=== PATIENT | male | born 1985 | race Caucasian/White ===

== ENCOUNTER 2018-02-06 20:57 | Emergency (ER) | payer OTHER ==
[~2018-02-06] VITALS: Ht 180.3 cm; Wt 162.7 kg
[~2018-02-06 20:57] MED LIST: BENADRYL25 MG PO; EPIPEN ADU0.3 MG/0.3 IM; PEPCID20 MG PO
[2018-02-06 22:05] LABS: BASOPHIL (%) 0.5 % (0-1); BASOPHIL COUNT 0.1 K/uL (0-0.1); EOSINOPHIL (%) 2.1 % (0-5); EOSINOPHIL COUNT 0.2 K/uL (0-0.3); HEMATOCRIT 40.9 % (38.0-50.0); HEMOGLOBIN 14.1 G/DL (12.5-16.6); IMMATURE GRANULOCYTE (%) 0.4 % (0.0-0.7); LYMPHOCYTE (%) 22.1 % (15-42); LYMPHOCYTE COUNT 2.5 K/uL (1.0-2.8); MCH 29.2 PG (29.0-34.0); MCHC 34.5 G/DL (30.0-36.0); MCV 84.7 FL (86-99); MONOCYTE (%) 5.5 % (3-12); MONOCYTE COUNT 0.6 K/uL (0-0.8); NEUTROPHIL (%) 69.4 % (45-76); NEUTROPHIL COUNT 7.9 K/uL (1.8-6.4); PLATELET COUNT 310 K/uL (156-360); RBC DIS.WIDTH-CV 13.1 % (11.8-14.6); RBC DIS.WIDTH-SD 40.3 % (39-53); RED BLOOD COUNT 4.83 M/uL (4.00-5.50); WHITE BLOOD COUNT 11.4 K/uL (4.1-10.2)
[2018-02-06 22:11] LABS: ALBUMIN 3.8 g/dL (3.2-4.8); CHLORIDE 103 mEq/L (99-109); POTASSIUM 3.3 mEq/L (3.7-5.4); SODIUM 141 mEq/L (136-147)
[2018-02-06 22:14] LABS: GLUCOSE 125 mg/dL (70-99); TOTAL PROTEIN 7.1 g/dL (6.4-8.3)
[2018-02-06 22:15] LABS: TOTAL BILIRUBIN 0.9 mg/dL (0.0-1.0)
[2018-02-06 22:17] LABS: ALKALINE PHOSPHATASE 79 IU/L (3-129); CREATININE 0.9 mg/dL (0.6-1.3); GFR ESTIMATE (CALCULATED) > 59 mL/min/ (58.99-99999)
[2018-02-06 22:18] LABS: UREA NITROGEN (BUN) 10 mg/dL (9-23)
[2018-02-06 22:19] LABS: AST (GOT) 19 IU/L (2-34); DIRECT BILIRUBIN 0.3 mg/dL (0.0-0.3)
[2018-02-06 22:20] LABS: ALT (GPT) 31 IU/L (3-49)
[2018-02-06 22:51] LABS: ERTH.SED.RATE 38 MM/HR (0-15)
[2018-02-07] MEDS ORDERED: KEFLEX500 MG PO (00:03)
[2018-02-07] MEDS ORDERED: ULTRAM50 MG PO (00:04)
[2018-02-07 00:19] VITALS: BP 143/86
== END 2018-02-07 00:19 | disposition home or self-care (01) ==
LOC: EME 20:57
PROVIDERS: Emergency Medicine
DX: L03.116 Cellulitis of left lower limb (principal); L03.115 Cellulitis of right lower limb; L30.9 Dermatitis, unspecified; R60.0 Localized edema
CPT/HCPCS: 80048; 80076; 85025; 85651; 86140; 93970; 99281; 99284